=== PATIENT | male | born 1970 | race Caucasian/White ===

== ENCOUNTER 2019-05-01 12:10 | Outpatient (CLI) | payer OTHER ==
--- NOTE | 2019-05-01 13:17 | RAD ---
RADIOGRAPH LEFT FEMUR 2 VIEWS: Date: 05/01/19 HISTORY: 48-year-old male with left lower extremity pain. FINDINGS: No periostitis, permeative lesion, osteolytic lesion, osteoblastic lesion, or fracture, involving the femur. IMPRESSION: Negative. POS: [facility]
== END 2019-05-01 12:11 | disposition home or self-care (01) ==
LOC: BICRAD 12:10
PROVIDERS: ATTEND Family Medicine
DX: M79.605 Pain in left leg (principal)
CPT/HCPCS: 36415; 80053; 80061; 81001; 84443; 85025